=== PATIENT | male | born 1950 | race Caucasian/White ===

== ENCOUNTER 2019-01-05 16:19 | Inpatient (IN) ==
[2019-01-05] MEDS ORDERED: ZOFRAN IV PRN (16:57)
[2019-01-05] MEDS ORDERED: NS 1,000 ML IV SCH (16:57)
[2019-01-05] MEDS ORDERED: LR 1,000 ML ONE (17:50)
[2019-01-05] MEDS ORDERED: SENSORCAINE 0.25%/EPI 1:200,000 ONE (17:50)
[2019-01-05 17:59] LABS: BASO# 0.06 X1000 (0.0-0.2); BASO% 0.8 % (0.0-0.8); EOS# 0.31 X1000 (0.0-0.7); EOS% 4.1 % (0.0-10.0); HEMATOCRIT 44.3 % (42.0-52.0); HEMOGLOBIN 14.7 g/dL (14.0-18.0); IMM GRAN# 0.03 X1000 (0.0-0.04); IMM GRAN% 0.4 % (0.0-0.5); LYMPH# 2.15 X1000 (1.2-3.4); LYMPH% 28.6 % (20.5-51.1); MCH 29.9 PG (27-31); MCHC 33.2 g/dL (33-37); MCV 90.2 FL (81-99); MONO# 0.61 X1000 (0.11-0.59); MONO% 8.1 % (1.7-9.3); MPV 9.2 FL (7.4-10.4); NEUT# 4.35 X1000 (1.4-6.5); PLT 253 X1000 (130-400); RBC 4.91 XMIL (4.7-6.1); RDW 12.7 % (11.5-14.5); WBC 7.51 X1000 (4.8-10.8)
[2019-01-05] MEDS ORDERED: ZOSYN 3.375 GM in NS 50 ML IV SCH (18:00)
--- NOTE | 2019-01-05 18:02 | EKG Report ---
Test Performed on : 01/05/2019 5:43:54 PM Test Reason : preop planning Blood Pressure : / mmHG Vent. Rate : 058 BPM Atrial Rate : 058 BPM P-R Int : 186 ms QRS Dur : 088 ms QT Int : 420 ms P-R-T Axes : 029 012 -05 degrees QTc Int : 412 ms Sinus bradycardia. Otherwise normal ECG When compared with ECG of 16-NOV-2014 07:15, No significant change was found Confirmed by Carla GUEVARA, Gavino Metzger ([id number]) on 01/06/2019 1:19:53 PM
--- NOTE | 2019-01-05 18:28 | GENERAL SURGERY CONSULTATION ---
DATE: 01/05/2019 REASON FOR CONSULTATION: Appendicitis. HISTORY OF PRESENT ILLNESS: This is a 68-year-old male who has had lower abdominal pain for the last 5 days. It has not felt to be hurting on 1 side more than the other, but it has just been persistent or recurrent lower abdominal pain. It seems to be worse at night. He denies nausea, vomiting, fever, chills, diarrhea or constipation. He was in Dr. Quesada office today and had tenderness in his right lower quadrant. A subsequent CT scan revealed acute appendicitis. PAST MEDICAL HISTORY: Hypertension, hypercholesterolemia, hypothyroidism. HOME MEDICATIONS: Multivitamin, Synthroid, aspirin, Crestor, Elavil, Cozaar. PAST SURGICAL HISTORY: None pertinent. ALLERGIES: No known drug allergies. SOCIAL HISTORY: Negative for tobacco or illicit drug use. He has 1 to 2 alcoholic beverages daily. He is a retired engineer process. FAMILY HISTORY: Reviewed and noncontributory. REVIEW OF SYSTEMS: Ten systems reviewed and negative except as noted above. PHYSICAL EXAMINATION: Vital Signs: Temperature 98 degrees, pulse 56, respirations 16, blood pressure 154/86, O2 saturation 100%. General: Well-developed, well-nourished male in no distress. He looks his stated age. HEENT: Normocephalic, atraumatic. Extraocular muscles intact. Pupils equal, round, reactive to light. Sclerae anicteric. Moist mucous membranes. Hearing grossly normal. No oral lesions. Neck: Supple. No thyromegaly. Cardiovascular: Regular rate and rhythm. Respiratory: Bilateral breath sounds. No increased work of breathing. Gastrointestinal: Soft, nondistended. No organomegaly or mass. He is tender in the lower abdomen especially on the right side without rebound or guarding. Extremities: No clubbing, cyanosis, or edema. Skin: Warm and dry. No rash. Musculoskeletal: Moves all extremities equally and well. LABORATORY DATA: Pending. IMAGING: CT of the abdomen and pelvis shows acute appendicitis. ASSESSMENT AND PLAN: A 68-year-old male with acute appendicitis. Plan is laparoscopic appendectomy this evening. He is also going to be given a dose of Zosyn. I discussed the risks and benefits with him including bleeding, infection, injury to surrounding organs such as the intestines, ureter or bladder, and other imponderables. He understands and agrees to proceed. cc: MD Alden Mondragon MD
[2019-01-05] MEDS ORDERED: BRIDION ONE (19:26)
--- NOTE | 2019-01-05 19:51 | HISTORY AND PHYSICAL ---
CHIEF COMPLAINT: Abdominal pain. HISTORY OF PRESENT ILLNESS: A 68-year-old white male with past medical history significant for diverticulosis, nonobstructive coronary artery disease, reflux disease, hyperlipidemia, hypertension, and hypothyroidism presents for evaluation of above mentioned symptoms. Current history of present illness began on . At that time, patient developed left-sided abdominal cramping. Since that time, symptoms have increased. The patient initially complained of diffuse abdominal discomfort, primarily in the lower abdomen. He denied fevers, chills, nausea, vomiting, dysuria, hematuria, pyuria, hematochezia, or melena. He recently has developed mild constipation. The patient was initially examined in my office. His symptoms were primarily right lower quadrant. The patient was sent immediately for CT scan evaluation. CT scan confirmed appendicitis. Patient will be admitted to the hospital for full evaluation and management of this condition. PAST MEDICAL HISTORY: 1. Multiple actinic keratoses. 2. History of nephrolithiasis. 3. Diverticulosis. 4. Nonobstructing coronary artery disease. 5. Reflux disease. 6. Internal hemorrhoids. 7. Hyperlipidemia. 8. Hypertension. 9. Hypothyroidism. 10. Macular degeneration. 11. History of lower extremity neuropathy. 12. Osteoarthritis. 13. Tinnitus. CURRENT MEDICATIONS: 1. Amitriptyline 10 mg 1/2 to 1 tablet at bedtime as needed. 2. Aspirin 81 mg daily. 3. Coenzyme Q10 100 mg daily. 4. Crestor 5 mg every other night. 5. Levothyroxine 112 mcg daily. 6. Losartan 50 mg daily. 7. Multivitamin daily. ALLERGIES: Patient states Zocor causes myalgias. SOCIAL HISTORY: Patient denies tobacco use. He drinks 1 to 2 drinks per week. He denies illicit drug use. He is a retired electrical machinist. He exercises routinely. FAMILY HISTORY: Patient's father passed at age 82 secondary to complications of hairy cell leukemia. He also had a history of a fungal pulmonary infection. Patient's mother passed at age 84 secondary to complications of Alzheimer dementia. REVIEW OF SYSTEMS: A 12 point review of systems was performed. Pertinent positives and negatives are noted history present illness. PHYSICAL EXAMINATION: VITAL SIGNS: Temperature 98.1 degrees, heart rate 65, respirations 16, blood pressure is 133/85. GENERAL: Well nourished, well developed, no acute distress. HEENT: Normocephalic, atraumatic. Pupils equal, round, reactive to light. Extraocular muscles intact. Sclerae anicteric. [place] conjunctivae. Oral and nasopharynx clear without exudate. NECK: Supple. No lymphadenopathy. No thyromegaly. No bruits auscultated. CARDIOVASCULAR: Regular rate and rhythm. No significant murmurs, rubs, or gallops. PULMONARY: Clear to auscultation bilaterally. ABDOMEN: Soft, tender in the suprapubic and right lower quadrant with guarding but no rebound. Positive bowel sounds. EXTREMITIES: Moves all extremities well. No significant clubbing, cyanosis, or edema. NEUROLOGIC: Cranial nerves 2-12 grossly intact. Motor and sensory grossly intact. PSYCHOLOGIC: Appropriate. LABORATORY DATA: Sodium 137, potassium 5.3, chloride 102, bicarb 28, BUN 17, creatinine 1.0, calcium 9.9, total bilirubin 0.4, total protein 6.5, albumin 3.9, alkaline phosphatase 52, AST 12, ALT 14. White blood cell count 6.9, hemoglobin 14.9, hematocrit 45.2, platelet count 295,000. CT scan of the abdomen and pelvis with contrast revealed acute appendicitis without complication. Severe diverticulosis. ASSESSMENT AND PLAN: 68-year-old white male with past medical history as noted presents for evaluation of abdominal discomfort. CT scan has confirmed appendicitis. I have discussed case with Dr. Ludwig. The patient will be admitted to the hospital for surgical intervention. 1. Admit to [address] [place] [address]. 2. Acute appendicitis-as above, Dr. Ludwig has been consulted. We will provide a dose of Zosyn preoperative. We will defer postoperative pain management to Dr. Ludwig. We will start as- needed Zofran. 3. Hypertension-patient's levothyroxine will be held for now. We will resume this in the morning depending on his blood pressure readings. 4. Hyperlipidemia-we will hold Crestor for now. We will resume this tomorrow if he is tolerating p.o. adequately. 5. Hypothyroidism-we will continue patient on levothyroxine replacement. 6. Neuropathy-patient recently was started on amitriptyline therapy. We will hold this this evening, but plan to resume this tomorrow. 7. Fluid, electrolytes, nutrition. We will monitor electrolytes. Normal saline at 75 mL an hour. N.p.o. 8. Prophylaxis. Patient will be placed on SCDs. cc: Alden Quesada MD
[2019-01-05] MEDS: DILAUDID ONE ×2 (20:12→20:17)
[2019-01-05] MEDS ORDERED: DILAUDID IV PRN (21:01)
[2019-01-05] MEDS ORDERED: ASPIRIN EC PO SCH (21:01)
[2019-01-05] MEDS ORDERED: THERA M PLUS PO SCH (21:01)
[2019-01-05] MEDS ORDERED: ELAVIL PO SCH (21:01)
[2019-01-05] MEDS ORDERED: COZAAR PO SCH (21:01)
[2019-01-05] MEDS ORDERED: NORCO-10 PO PRN (21:01)
[2019-01-05] MEDS ORDERED: PERIDEX MT SCH (21:15)
--- NOTE | 2019-01-05 21:54 | OPERATIVE NOTE ---
PROCEDURE DATE: 01/05/2019 PREOPERATIVE DIAGNOSIS: Acute appendicitis. POSTOPERATIVE DIAGNOSIS: Acute appendicitis. PROCEDURE: Laparoscopic appendectomy. SURGEON: Benton Ludwig MD. ANESTHESIA: General. ESTIMATED BLOOD LOSS: 5 mL. COMPLICATIONS: None apparent. SPECIMENS: Appendix. FINDINGS: The appendix appeared inflamed but nonperforated. TECHNIQUE: The patient was brought to the operating room and placed supine on the table. General anesthesia was induced. A [place] catheter was placed. He was prepped and draped in usual sterile fashion. 0.25% Marcaine with epinephrine was used to anesthetize our incisions. A 12 mm incision was made just above the umbilicus. The fascia was exposed and incised sharply. Entry into the peritoneal cavity was obtained under direct vision with the Optiview device. Pneumoperitoneum was established. The camera was inserted. There was no evidence of injury to underlying structures. He was placed in Trendelenburg and left rotation. Two 5 mm incision ports were placed under direct vision, one in the left lower quadrant and one in the lower suprapubic midline. The appendix was found in the right lower quadrant. As expected, it was inflamed but nonperforated. It was slightly stuck behind the cecum so I incised the lateral cecal peritoneal attachments with hook cautery and swept the cecum medially up off the retroperitoneum. This exposed the appendix. I was able to completely free the appendix up of its retroperitoneal attachments in the same fashion. I then dissected a window underneath the appendix through the appendiceal mesentery with the [place] forceps. I transected the base of the appendix with an Endo-BRENNAN stapler, and the appendiceal mesentery in the same fashion. I inspected the staple lines. There was no leakage. There was no bleeding. The appendix was placed in an EndoCatch bag and brought out through the umbilical port site. The abdomen was desufflated. The ports were removed. The umbilical fascia was closed with a [id number] 0 Vicryl. The skin was closed with 4-0 subcuticular Monocryl and Steri-Strips. There were no apparent complications. He was awakened in stable condition and transferred to the recovery room. cc: MD Alden Mondragon MD
[2019-01-06] MEDS ORDERED: SYNTHROID PO SCH (07:00)
[2019-01-06 07:43] VITALS: BP 128/73
[2019-01-06] MEDS ORDERED: CRESTOR PO SCH (09:00)
--- NOTE | 2019-01-06 11:12 | GENERAL SURGERY PROGRESS NOTE ---
DATE: 01/06/2019 SUBJECTIVE: The patient is doing well. No significant pain nausea, vomiting, or other complaints. He is tolerating his diet. He is ambulating and voiding. OBJECTIVE: Vital Signs: He is afebrile. Vital signs are stable. General: He is awake, alert, and oriented x4. No acute distress. Respiratory: No work of breathing. Gastrointestinal: Soft, nondistended, appropriately tender. Incisions are clean, dry, and intact. ASSESSMENT AND PLAN: A 68-year-old male, postoperative day 1, laparoscopic appendectomy. He is doing well. He will be discharged home. Instructions were given. cc: MD Alden Mondragon MD
--- NOTE | 2019-01-07 19:37 | DISCHARGE SUMMARY ---
ADMISSION DATE: 01/05/2019 DISCHARGE DATE: 01/06/2019 ADMISSION DIAGNOSIS: Abdominal pain. DISCHARGE DIAGNOSES: 1. Acute appendicitis. 2. Hypertension, present on arrival. 3. Hyperlipidemia, present on arrival. 4. Hypothyroidism, present on arrival. 5. Neuropathy, present on arrival. CONSULTATIONS: Dr. Ludwig with General Surgery was consulted for further evaluation and management of acute appendicitis. PROCEDURES: Laparoscopic appendectomy was performed on 01/05/[address] Ludwig. HISTORY AND PHYSICAL EXAMINATION: See admit note. PHYSICAL EXAMINATION PRIOR TO DISCHARGE: Vital signs: Temperature 97.8 degrees, heart rate 58, respirations 18, blood pressure is 128/73. General: Well nourished, well developed, no acute distress. Cardiovascular: Regular rate and rhythm. No significant murmurs, rubs, or gallops. Pulmonary: Clear to auscultation bilaterally. Abdomen: Soft. Postoperative tenderness without rebound or guarding. Positive bowel sounds. Extremities: Moves all extremities well. No significant clubbing, cyanosis, or edema. Dermatologic: Evaluation reveals no evidence of rash. LABORATORY DATA PRIOR TO DISCHARGE: None. HOSPITAL COURSE: The patient was admitted as per history and physical examination. Hospital course per condition is as follows. 1. Acute appendicitis - While in my office, the patient was noted to have considerable abdominal discomfort. Patient was sent directly for CT scan evaluation. This confirmed the diagnosis of acute appendicitis. Dr. Ludwig was consulted. Patient was taken directly for laparoscopic appendectomy. The patient tolerated this procedure quite well. On postoperative day #1, the patient was tolerating p.o. The patient will be discharged home with close outpatient followup. 2. Hypertension - The patient has longstanding disease. He will be discharged home with his home dose of losartan. 3. Hyperlipidemia - The patient will be continued on rosuvastatin every other day as an outpatient. 4. Hypothyroidism - The patient was continued on levothyroxine therapy. 5. Neuropathy - The patient was continued on amitriptyline. DISCHARGE CONDITION: Good. DISPOSITION: Discharge to home. MEDICATIONS: 1. Hydrocodone/APAP 10/325, 1 tablet every 6 hours as needed for pain. 2. Multivitamin daily at bedtime. 3. Synthroid 112 mcg daily. 4. Aspirin 81 mg daily. 5. Rosuvastatin 5 mg every other day. 6. Amitriptyline 10 mg at bedtime. 7. Losartan 50 mg at bedtime. FOLLOWUP: The patient is to follow with me as scheduled. The patient has a followup with Dr. Jimenes as arranged. cc: Alden Quesada MD
== END 2019-01-06 09:10 | disposition home or self-care (01) | DRG 343 ==
LOC: DIRADM 16:19 → 4N 16:38
PROVIDERS: ADMIT Internal Medicine; ATTEND Internal Medicine